=== PATIENT | male | born 1995 | race African-American/Black ===

== ENCOUNTER 2021-06-05 15:39 | Emergency (ER) | payer OTHER, SELFPAY ==
[2021-06-05 15:48] VITALS: BP 100/53; BP 101/54; PULSE 61; RESP 16; TEMP 36.7; O2SAT 100; BMI 18.1
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
[2021-06-05 16:39] LABS: MANUAL DIFF FLAG NO
[2021-06-05 16:40] LABS: Basophils Absolute Auto 0.1 X10*3/uL (0.0-0.2); Basophils Percent Auto 0.8 % (0-2); Eosinophils Absolute Auto 0.1 X10*3/uL (0.0-0.4); Eosinophils Percent Auto 1.3 % (0-4); Hematocrit 41.8 % (42-52); Hemoglobin 14.3 g/dl (14.0-18.0); Imm Gran Abs Auto 0.02 X10*3/uL (0.00-0.03); Imm Gran Pct Auto 0.3 % (0.0-0.4); Lymphocytes Absolute Auto 2.2 X10*3/uL (1.2-4.9); Lymphocytes Percent Auto 27.2 % (20-40); Mean Corpuscular HGB Conc 34.2 g/dl (31.0-36.0); Mean Corpuscular Hemoglobin 30.8 pg (27.0-33.0); Mean Corpuscular Volume 90.1 fL (80-98); Mean Platelet Volume 11.3 fL (9.4-12.4); Monocytes Absolute Auto 0.6 X10*3/uL (0.1-1.2); Monocytes Percent Auto 7.4 % (2-11); Platelet Count 238 X10*3/uL (160-400); Red Blood Count 4.64 X10*6/uL (4.60-5.80); Red Cell Distribution Width 12.5 % (11.0-16.0)
[2021-06-05 16:52] LABS: Glucose Urine UA NEG (NEG); Leukocyte Esterase Urine NEG (NEG); Nitrite Urine NEG (NEG); PH 6.5 (5.0-8.0); Specific Gravity - Urine <= 1.005 (1.005-1.025); Urine Blood NEG (NEG); Urine Ketones NEG (NEG); Urine Protein NEG (NEG-TRACE)
[2021-06-05 16:57] LABS: Appearance Urine CLEAR; Color Urine YELLOW
[2021-06-05 17:01] LABS: Ethanol < 10 mg/dL
[2021-06-05 17:03] LABS: Alanine Aminotransferase 10 U/L (0-40); Albumin Level 4.5 g/dL (3.5-5.0); Alkaline Phosphatase 70 U/L (39-117); Anion Gap 12 (12-20); Aspartate Amino Transferase 12 U/L (5-37); Bilirubin Direct 0.3 mg/dL (0.0-0.5); Bilirubin Total 0.5 mg/dL (0.0-1.0); Blood Urea Nitrogen 11 mg/dL (9-16); Calcium 9.6 mg/dL (8.4-10.2); Carbon Dioxide 30 mmol/L (22-29); Chloride 104 mmol/L (96-108); Creatinine Clr Calc Pharmacy 127.2; Estimated Glomerular Filt Rate > 60; Glucose Random 77 mg/dL (60-115); Magnesium 2.3 mg/dL (1.6-2.6); Potassium 4.5 mmol/L (3.3-5.1); Sodium 141 mmol/L (135-145); Total Protein 6.9 g/dL (6.5-8.0)
[2021-06-05 17:16] VITALS: BP 99/50; PULSE 60
[2021-06-05 17:17] VITALS: BP 105/61; BP 111/71; PULSE 62; PULSE 86
[2021-06-05 17:19] LABS: Amphetamine Screen Urine Not Detected (Not Detect); Barbiturates, Urine Not Detected (Not Detect); Benzodiazepines Screen Urine Not Detected (Not Detect); Cannabinoid Screen Urine Not Detected (Not Detect); Cocaine Screen Urine Not Detected (Not Detect); Opiate Screen Urine Not Detected (Not Detect); Phencyclidine Screen Urine Not Detected (Not Detect)
[2021-06-05] MEDS: 0.9 % Sodium Chloride 1,000 ML 999 ML IVCONT ×2 (18:03→18:08)
[2021-06-05 18:57] VITALS: BP 112/59; BP 114/67; PULSE 55; PULSE 62
[2021-06-05 18:58] VITALS: BP 116/63; PULSE 68
--- NOTE | 2021-06-05 19:25 | MHC.CARE ---
CARE team contacted Becka Jordanta re: pt who was sent via ambulance for medical clearance due to concerns that he hasn't been eating, drinking, or sleeping and with significantly low blood pressure. Pt has been medically cleared and ready for return to facility. Per nursing supervisor rework- pt is able to return when discharged from the ED and will need to be transferred back via ambulance. This was communicated with Cherise CHAN and ED nursing. transfer request form completed and placed in chart. Psych consult had been placed due to concerns that he has been admitted to [facility] since 06/01/21 and documentation sent with pt has not indicated that he has been started/re-started on medications, and this is pertinent to pt's ED visit due to his refusal to eat and sleep being due to him trying to build stamina. Advised that psychiatry is not likely able to weigh in on psychiatric stabilization that a patient is actively admitted for at an external facility.
--- NOTE | 2021-06-05 19:54 | PC.NURSE ---
Ambulance for transfer being called by Janae (ED clinical secretary). Per previous note, CARE team spoke with [facility] pipeline maintenance supervisor and is accepted by facility for transfer. Pt currently sitting upright in bed, calm/cooperative. Will continue to monitor.
== END 2021-06-05 20:42 ==
PROVIDERS: Physician Assistant; Emergency Provider Emergency Medicine; PCP Internal Medicine
DX: F25.9 Schizoaffective disorder, unspecified (principal); R62.7 Adult failure to thrive; G47.00 Insomnia, unspecified; Z91.14 Patient's other noncompliance with medication regimen
CPT/HCPCS: 36415; 80048; 80076; 80307; 81003; 82077; 83735; 85025; 99285